=== PATIENT | female | born 1985 | race Caucasian/White ===

== ENCOUNTER 2019-12-07 09:35 | Day surgery (SDC) | payer MEDICAID ==
[~2019-12-07] VITALS: Ht 157.5 cm; Wt 72.6 kg
[2019-12-07] MEDS ORDERED: LACTATED RINGERS 1,000 ML IV SCH (10:45)
[2019-12-07 11:11] LABS: UCG SCREEN NEGATIVE
[2019-12-07] MEDS ORDERED: SKIN ADHESIVE 0.7 GM EA TOP ONE (11:21)
[2019-12-07] MEDS ORDERED: BUPIVACAINE HCL/PF 0.5% (5MG/ML) 10ML ONE (11:21)
[2019-12-07] MEDS ORDERED: VASOPRESSIN 20 UNIT/ML 1ML ONE (11:21)
[2019-12-07 11:44] LABS: CHLORIDE 107 mEq/L (98-107)
[2019-12-07 11:45] LABS: PARTIAL THROMBOPLASTIN TIME 25.2 sec (23.4-31.0); PROTHROMBIN TIME 9.9 sec (9.6-11.0)
[2019-12-07 11:48] LABS: BASOPHILS % 0.7 % (0.0-2.0); EOSINOPHILS % 4.2 % (0.0-5.0); HEMATOCRIT. 42.2 % (36.0-48.0); HEMOGLOBIN. 14.2 g/dL (12.0-16.0); LYMPHOCYTES % 33.4 % (20.0-50.0); MEAN CORPUSCULAR HEMOGLOBIN 30.6 pg (28.0-32.0); MEAN CORPUSCULAR VOLUME 90.9 fL (81.0-99.0); MEAN PLATELET VOLUME 9.2 fl (7.4-10.4); MONOCYTES % 5.3 % (2.0-8.0); NEUTROPHILS % 56.4 % (40.0-76.0); PLATELET 339 x1000/uL (130-400); RED BLOOD CELL COUNT 4.64 mill/uL (4.2-5.4); RED CELL DISTRIBUTION WIDTH 13.8 % (11.6-14.6)
[2019-12-07] MEDS ORDERED: ETHY1TAB8 PO (12:00)
[2019-12-07] MEDS ORDERED: FENTANYL CITRATE/PF 50MCG/ML 2ML VIAL ONE ×3 (12:46→17:26)
[2019-12-07] MEDS ORDERED: MIDAZOLAM HCL 2 MG/2 ML VIAL ONE ×2 (12:46→15:09)
[2019-12-07] MEDS ORDERED: SODIUM CHLORIDE 0.9% 10ML VIAL ONE (12:47)
[2019-12-07] MEDS ORDERED: CEFAZOLIN SODIUM 1000MG/VIAL ONE (12:47)
[2019-12-07] MEDS ORDERED: PROPOFOL 200MG/20ML VIAL IV ONE (12:47)
[2019-12-07] MEDS ORDERED: LIDOCAINE HCL/PF 1% 10 MG/ML 5ML VIAL ONE (12:47)
[2019-12-07] MEDS ORDERED: ROCURONIUM BROMIDE 10MG/ML VIAL 5ML IV ONE (12:52)
[2019-12-07] MEDS ORDERED: SUCCINYLCHOLINE CHLORIDE 200MG/10ML IV ONE (12:58)
[2019-12-07] MEDS ORDERED: DEXAMETHASONE 4MG/ML 1ML VIAL ONE (13:07)
[2019-12-07] MEDS ORDERED: ONDANSETRON HCL 4MG/2ML INJ ONE (14:03)
[2019-12-07] MEDS ORDERED: METOCLOPRAMIDE HCL 10MG/2ML VIAL ONE (14:03)
[2019-12-07] MEDS ORDERED: HYDROCODONE/ACETAMINOPHEN 10/325MG TABLET PO NR (18:15)
[2019-12-07] MEDS: HYDROMORPHONE HCL/PF 2MG/ML CPJ IV PRN ×3 (18:33→18:56)
[2019-12-07 20:21] VITALS: BP 132/81
== END 2019-12-07 20:35 | disposition home or self-care (01) ==
LOC: OR 09:35
PROVIDERS: ATTEND Obstetrics & Gynecology
DX: N92.0 Excessive and frequent menstruation with regular cycle (principal); D25.9 Leiomyoma of uterus, unspecified; Z79.899 Other long term (current) drug therapy; Z98.890 Other specified postprocedural states
CPT/HCPCS: 36415; 58545; 80048; 81025; 85025; 85610; 85730; 86850; 86900; 86901; 88305; J0330; J0690; J1100; J1170; J2250; J2405; J2704; J2765; J3010; J3490; S2900